=== PATIENT | female | born 1995 | race Caucasian/White ===

== ENCOUNTER 2025-04-21 08:04 | Emergency (ER) | payer OTHER, SELFPAY ==
[2025-04-21 08:23] VITALS: BP 111/62; PULSE 81; RESP 16; TEMP 36.6; O2SAT 100
[2025-04-21 08:31] LABS: EDSTREPNEGPOS1 Negative (Negative)
--- NOTE | 2025-04-21 08:38 | ED.URI ---
HPI - URI/Sore Throat General Chief Complaint: Upper Respiratory Infection Stated Complaint: Strep Symptoms Time Seen by Provider: 04/21/25 08:20 Source: patient and RN notes reviewed Mode of arrival: ambulatory Limitations: no limitations History of Present Illness HPI Narrative: Patient presents today complaining of rhinorrhea, intermittent sweats, scratchy throat since yesterday. States she noted redness and exudate and wanted to come in for evaluation. Denies fever, shortness of breath, difficulty swallowing. Currently rates her pain 3/10 and has been gargling salt water. She is 10 weeks . Related Data Home Medications ?Medication ?Instructions ?Recorded ?Confirmed ?Last Taken ?Type metformin 500 mg tablet,extended mg PO 04/21/25 Unknown History release 24 hr PMFSH Comments At time of signature, I have reviewed and agree with nursing past medical, surgical, social and family history unless otherwise noted. Please see nursing chart for further information. There is no relevant family history pertinent to the presenting complaint Exam Narrative: GENERAL: Well-appearing, well-nourished, and in no acute distress. HEAD: Normocephalic, atraumatic. EYES: EOMI. No redness or drainage. Conjunctivae normal. ENT: Mucous membranes pink and moist. Nares clear. No rhinorrhea. TMs normal bilaterally. Throat mildly erythematous. Tonsils 3+ with small amount of white exudate. Uvula midline. NECK: Normal AROM. Supple. No lymphadenopathy. CHEST: No respiratory distress. Clear to auscultation. HEART: Regular rate and rhythm. No murmur appreciated. EXTREMITIES: Normal range of motion. No edema. SKIN: Warm, dry, no rash. Capillary refill normal. Normal skin turgor. NEURO: No focal deficits. Alert and oriented x3. Gait steady. PSYCH: Normal affect. No signs of depression or anxiety. Course Course Level of Care: Express Care Visit Vital Signs Vital signs: Vital Signs Temperature 98 F 04/21/25 08:23 Pulse Rate 81 04/21/25 08:23 Respiratory Rate 16 04/21/25 08:23 Blood Pressure 111/62 04/21/25 08:23 Pulse Oximetry 100 04/21/25 08:23 Temperature 98 F 04/21/25 08:23 Pulse Rate 81 04/21/25 08:23 Respiratory Rate 16 04/21/25 08:23 Blood Pressure 111/62 04/21/25 08:23 Pulse Oximetry 100 04/21/25 08:23 Reviewed MDM - URI/Sore Throat MDM Narrative Medical decision making narrative: 29-year-old female patient that is 10 weeks presents today with scratchy throat, rhinorrhea, and sweats since yesterday. Exam shows some redness and swelling of the tonsils. Rapid strep negative. Culture pending. Etiology likely viral. Discussed safe OTC treatments. Vital signs stable. No red flag symptoms at this time that would warrant ER transfer. Anticipatory guidance and ED precautions given. Differential Diagnosis Differential diagnosis: Likely upper respiratory infection, viral infection, pharyngitis and other (Strep throat) Lab Data Attestation: I reviewed the patient's lab results. Labs: Lab Results 04/21/25 Range/Units 08:29 POC Grp A Strep Screen Negative (Negative) Critical Care Time Critical Care Time Critical Care Time: No Discharge Plan Discharge Clinical Impression: Pharyngitis Qualifiers: Pharyngitis/tonsillitis etiology: unspecified etiology Qualified Code(s): J02.9 - Acute pharyngitis, unspecified Patient Disposition: Home Condition: Stable Instructions: Pharyngitis (ED) Additional Instructions: Your rapid strep swab was negative today at [facility]. You will be notified in a few days if the culture comes back positive for strep, and appropriate antibiotics will be called in for you at that time. Your symptoms are likely due to a viral illness, which is not treated with antibiotics. Viral symptoms can be present for up to 7-10 days. Take Tylenol for fever or pain. Rest and stay hydrated. Follow up with your PCP in 7 days if symptoms are not improving. Go to the ER immediately if you have any difficulty breathing or swallowing. Patient Language: Kazakh Prescriptions: No Action metformin 500 mg tablet extended release 24 hr PO Follow-up/Referrals: PHYSICIAN,DEOILING MACHINE OPERATOR [Primary Care Provider] - Time of Disposition: 08:39
== END 2025-04-21 08:40 | disposition home or self-care (01) ==
PROVIDERS: Emergency Provider Nurse Practitioner
DX: O99.511 Diseases of the respiratory system complicating pregnancy, first trimester (principal); Z3A.10 10 weeks gestation of pregnancy; J02.9 Acute pharyngitis, unspecified
CPT/HCPCS: 87081; 87880; 99203; G0463